=== PATIENT | female | born 1975 | race Caucasian/White ===

== ENCOUNTER → 2020-11-26 | Outpatient (CLI) | payer BC | END | disposition home or self-care (01) | LOC: RT 14:28 | PROVIDERS: ATTEND Family Medicine | DX: J45.909 Unspecified asthma, uncomplicated (principal) | CPT/HCPCS: 94010; 94727; 94729 ==

== ENCOUNTER 2021-06-01 06:00 | Day surgery (SDC) | payer BC ==
[2021-05-25 15:58] LABS: BASOPHILS # (AUTO) 0.1 X10'3 (0-0.2); BASOPHILS % (AUTO) 0.6 % (0-1); EOSINOPHILS # (AUTO) 0.3 X10'3 (0-0.9); EOSINOPHILS % (AUTO) 3.2 % (0-6); LYMPHOCYTES # (AUTO) 2.6 X10'3 (1.1-4.8); LYMPHOCYTES % (AUTO) 23.5 % (21-51); MEAN CORPUSCULAR HEMOGLOBIN 30.3 PG (27.0-31.0); MEAN CORPUSCULAR HGB CONC 33.3 g/dL (33.0-36.5); MEAN PLATELET VOLUME 9.4 FL (7.4-10.4); MONOCYTES # (AUTO) 0.8 X10'3 (0-0.9); MONOCYTES % (AUTO) 7.3 % (2-12); NEUTROPHILS # (AUTO) 7.2 X10'3 (1.8-7.7); NEUTROPHILS % (AUTO) 65.4 % (42-75); PRE OP HEMATOCRIT 41.5 % (35.0-45.0); PRE OP HEMOGLOBIN 13.8 g/dL (12.0-16.0); PRE OP PLATELET COUNT 315 X10'3 (140-440); RED BLOOD COUNT 4.56 X10'6 (4.20-5.60); RED CELL DISTRIBUTION WIDTH 13.6 % (11.5-14.5)
[2021-05-25 16:09] LABS: PRE OP PROTIME 10.2 SECONDS (9.0-12.0)
[2021-05-25 16:21] LABS: HCG SERUM QL NEGATIVE
[2021-05-25 16:28] LABS: ALBUMIN 3.8 G/DL (3.4-5.0); ALBUMIN/GLOBULIN RATIO 1.1 (1.1-1.5); BLOOD UREA NITROGEN 10 MG/DL (7-18); BUN/CREATININE RATIO 12.2 (6.6-38.0); CALCIUM 8.7 MG/DL (8.5-10.1); CHLORIDE 103 MMOL/L (99-107); CREATININE 0.82 MG/DL (0.40-0.90); PRE OP ALT 49 U/L (30-65); PRE OP ANION GAP 10 (8-16); PRE OP AST 58 U/L (10-37); PRE OP BILIRUB, TOTAL 0.3 MG/DL (0.0-1.0); PRE OP GLUCOSE 107 MG/DL (70-104); PRE OP POTASSIUM 4.1 MMOL/L (3.4-5.1); PRE OP SODIUM 141 MMOL/L (135-145); TOTAL CARBON DIOXIDE 27.7 MMOL/L (24-32); TOTAL PROTEIN 7.4 G/DL (6.4-8.2); eGFR 75 ML/MIN
[~2021-06-01] VITALS: Ht 162.6 cm; Wt 96.7 kg
[2021-06-01] VITALS (12 sets, daily range): BP systolic 103–130; BP diastolic 59–84
[~2021-06-01 06:00] MED LIST: ALBU8HFA PO; CETI-90 PO; DULO60CA65 PO; FAMO10TA41 PO; MONT-40 PO; MUPI22OI30; albuterol 2.5 MG/3 ML nebule NEB ONE; diazepam 5mg tablet PO ONE; famotidine 20mg tablet PO ONE; ringers solution, lacted 1,000 ML IV SCH
[2021-06-01] MEDS: oxymetazoline 15 ML nasal spray NS PRN ×2 (06:27→09:34)
[2021-06-01] MEDS ORDERED: cocaine 4% topical solution 4ml bottle ONE (07:19)
[2021-06-01] MEDS ORDERED: oxymetazoline 15 ML nasal spray NS ONE (07:20)
[2021-06-01] MEDS ORDERED: mupirocin 2% ointment 22GM ONE (07:20)
[2021-06-01] MEDS ORDERED: fentaNYL/PF 50MCG/1 ML 2ML syringe IV PRN ×2 (07:40)
[2021-06-01] MEDS ORDERED: labetalol 20mg/4ml (5mg/ml) syringe IV PRN (07:40)
[2021-06-01] MEDS ORDERED: ringers solution, lacted 1,000 ML IV SCH (07:40)
[2021-06-01] MEDS ORDERED: morphine 2 MG/ML inj. syringe IV PRN (07:40)
[2021-06-01] MEDS ORDERED: ondansetron/PF 4mg/2ml inj IV PRN (07:40)
[2021-06-01] MEDS ORDERED: morphine 4 MG/ML inj SYRINge IV PRN (07:40)
[2021-06-01] MEDS ORDERED: hydrALAZINE 20mg/ml inj. IV PRN (07:40)
[2021-06-01] MEDS ORDERED: midazolam 1 mg/ML 2ml injection ONE (07:47)
[2021-06-01] MEDS ORDERED: FENTANYL CITRATE/PF 50 MCG/1 ML VIAL ONE (07:47)
[2021-06-01] MEDS ORDERED: propofol inj 20 ML IV ONE (07:48)
[2021-06-01] MEDS ORDERED: LIDOcaine 2% (20mg/ml) 5ml vial ONE (07:48)
[2021-06-01] MEDS ORDERED: dexamethasone sod phosphate 4mg/ml inj. ONE (07:48)
[2021-06-01] MEDS ORDERED: ondansetron/PF 4mg/2ml inj ONE (07:48)
[2021-06-01] MEDS ORDERED: dexmedetomidine 200mcg/2ml inj. IV ONE (07:52)
[2021-06-01] MEDS ORDERED: acetaminophen 1,000mg/100ml IV 100 ML IV ONE (08:35)
[2021-06-01] MEDS ORDERED: lidocaine 1%/epinephrine 1:100,000 inj. 50ml multi-dose vial ONE (08:48)
[2021-06-01] MEDS ORDERED: ePHEDrine 50MG/ML INJ. ONE (08:50)
--- NOTE | 2021-06-01 09:59 | NUR ---
Received from OR via , accompanied by Anesthesiologist DR SHEPPARD and report given by Anesthesiolgist. AWAKENS TO VOCIE. VITALS STABLE. DRESSINGS DI. LAURA PAIN.
[2021-06-01] MEDS ORDERED: salt irrigation nasal spray 45 ML SPRAY NS PRN (10:15)
--- NOTE | 2021-06-01 11:39 | NUR ---
AWAKE AND ORIENTED. VITALS STABLE. DRESSING DI. LAURA PAIN. HOME WITH HER DAD AT THIS TIME.
== END 2021-06-01 11:39 | disposition home or self-care (01) ==
LOC: PAS 06:00
PROVIDERS: ATTEND Otolaryngology
DX: J34.2 Deviated nasal septum (principal); J34.3 Hypertrophy of nasal turbinates; J32.8 Other chronic sinusitis; J45.909 Unspecified asthma, uncomplicated; G43.909 Migraine, unspecified, not intractable, without status migrainosus; K21.9 Gastro-esophageal reflux disease without esophagitis; F32.A Depression, unspecified; G47.30 Sleep apnea, unspecified; E66.9 Obesity, unspecified; Z68.36 Body mass index [BMI] 36.0-36.9, adult; Z20.822 Contact with and (suspected) exposure to COVID-19; Z98.890 Other specified postprocedural states; Z90.49 Acquired absence of other specified parts of digestive tract; Z88.2 Allergy status to sulfonamides; Z88.5 Allergy status to narcotic agent; Z72.89 Other problems related to lifestyle; Z79.01 Long term (current) use of anticoagulants; Z79.899 Other long term (current) drug therapy
CPT/HCPCS: 30140; 30520; 31254; 31267; 36415; 61782; 80053; 82948; 84703; 85025; 85576; 85610; 85730; 87635; 93005; 94640; A6402; C9250; C9803; J0131; J1100; J2250; J2405; J2704; J3010; J3490; J7030; J7040; J7120; U0003; U0005; Z7506; Z7508; Z7512; A4618; A7000